=== PATIENT | female | born 1935 | race African-American/Black ===

== ENCOUNTER 2017-06-21 22:39 | Emergency (ER) | payer MEDICARE ==
[~2017-06-21] VITALS: Ht 154.9 cm; Wt 67.1 kg
[2017-06-21 23:32] LABS: Basophils # (auto) 0.1 uL; Eosinophils # (auto) 0.2 uL; Lymphocytes # (auto) 0.9 uL; Mean Corpuscular Volume 83.8 fL (80.0-100.0); Mean Platelet Volume 8.2 fL (6.9-10.8); Monocytes # (auto) 0.5 uL; Nucleated Red Blood Cells % 0.1 %; White Blood Cell 5.5 10^3/uL (4.4-10.8)
[2017-06-21 23:34] LABS: Eosinophils % (auto) 3.3 % (0.0-7.0); Hematocrit 33.2 % (36.0-46.0); Lymphocytes % (auto) 16.1 % (10.0-50.0); Mean Corpuscular Hemoglobin 27.7 pg (28.0-32.0); Monocytes % (auto) 9.9 % (0.0-12.0); Neutrophils # (auto) 3.8 uL; Neutrophils % (auto) 69.7 % (37.0-80.0); Platelet Count (auto) 236 10^3/uL (140-450); Red Cell Distribution Width 16.2 % (11.8-14.3)
[2017-06-21] MEDS ORDERED: SODIUM CHLORIDE 0.9% 1,000 ML IV ONE (23:45)
[2017-06-21 23:55] LABS: Albumin 2.9 g/dL (3.4-5.0); Anion Gap 10 (5-15); Aspartate Aminotransferase 14 U/L (15-37); BUN/Creatinine Ratio 18.6; Blood Urea Nitrogen 16 mg/dL (7-18); Calcium 8.7 mg/dL (8.5-10.1); Carbon Dioxide 21 mmol/L (21-32); Chloride 107 mmol/L (98-107); GFR African American 81 mL/min; GFR Non-African American 67 mL/min; Glucose 100 mg/dL (74-106); Potassium 4.1 mmol/L (3.5-5.1); Sodium 138 mmol/L (136-145)
[2017-06-22] LABS: Alkaline Phosphatase 108 U/L (45-117); Bilirubin, Total 0.5 mg/dL (0.2-1.0); Total Protein 7.8 g/dL (6.4-8.2)
[2017-06-22 00:13] LABS: B-Type Natriuretic Peptide 20.1 pg/mL (0-100)
[2017-06-22 00:23] LABS: Temperature: 21.9 C (20.0-25.0)
[2017-06-22] MEDS ORDERED: metroNIDAZOLE 500MG/100ML 100 ML IV ONE (01:00)
[2017-06-22] MEDS ORDERED: cefTRIAXone 1GM/50ML D5W 50 ML IV ONE (01:00)
[2017-06-22 01:05] VITALS: BP 129/70
[2017-06-22] MEDS ORDERED: metroNIDAZOLE 500 MG TAB PO ONE (02:45)
== END 2017-06-22 03:03 | disposition home or self-care (01) ==
LOC: EDBD 22:39 → ER 22:42
DX: R19.7 Diarrhea, unspecified (principal); R42 Dizziness and giddiness; J32.9 Chronic sinusitis, unspecified; E11.9 Type 2 diabetes mellitus without complications; I11.0 Hypertensive heart disease with heart failure; I50.9 Heart failure, unspecified; I25.2 Old myocardial infarction; E78.5 Hyperlipidemia, unspecified; Z86.73 Personal history of transient ischemic attack (TIA), and cerebral infarction without residual deficits
CPT/HCPCS: 36415; 70450; 71010; 80053; 83880; 84484; 85025; 93005; 96361; 96365; 99285; J0696; J3490; J7030